=== PATIENT | male | born 1995 | race Caucasian/White ===

== ENCOUNTER → 2018-04-30 | Outpatient (CLI) | payer OTHER ==
--- NOTE | 2018-04-30 14:57 | XR ---
Thoracic spine HISTORY: Upper and mid back pain, lifting injury 3 views of the thoracic spine submitted on 5 images. Thoracic vertebral bodies show preserved height, alignment, and bone mineralization. Disc spaces are maintained. There is a mild spinal curvature is suspected at the upper thoracic spine level. Disc spa neeru are maintained. IMPRESSION: Possible scoliotic curvature of the thoracic spine.
== END | disposition home or self-care (01) ==
LOC: RADXRMAIN 14:05
PROVIDERS: ATTEND Emergency Medicine
DX: S23.3XXA Sprain of ligaments of thoracic spine, initial encounter (principal)
CPT/HCPCS: 72072

== ENCOUNTER 2020-05-08 11:13 | Emergency (ER) | payer BC ==
[2020-05-08 11:24] VITALS: RESP 18
[2020-05-08] MEDS ORDERED: SODIUM CHLORIDE 0.9% 1,000 ML IV STA (11:29)
--- NOTE | 2020-05-08 12:02 | ED ---
General Adult HPI - General Chief complaint: Chest Pain Stated complaint: chest pain Time Seen by Provider: 05/08/20 11:26 Source: patient, RN notes reviewed, old records reviewed Mode of arrival: ambulatory Limitations: no limitations - History of Present Illness Initial comments: 24-year-old male presenting for evaluation of left upper chest pain. Pain is sharp in nature, worse with deep inspiration. It has been present for the past 24-48 hours. Patient states he was at work yesterday and it was quite hot and he was dehydrated, felt lightheaded. He was told that he needed to stay at work for an additional 8 hours and he left for medical reasons. He is presenting today with a need for a work note. He has been eating and drinking well for the past 16 hours. He has rested and feels better. He states only minimal chest pain at this time. No dyspnea. No fever. - Related Data Home Medications Medication Instructions Recorded Confirmed Dextroamphetamine/Amphetamine 15 - 30 mg PO TID 05/08/20 05/08/20 [Dextroamp-Amphetamin 30 mg Tab] Ibuprofen [Motrin] 800 mg PO Q8H 05/08/20 05/08/20 Allergies Allergy/AdvReac Type Severity Reaction Status Date / Time No Known Allergies Allergy Verified 05/08/20 11:55 Review of Systems ROS Statement: Those systems with pertinent positive or pertinent negative responses have been documented in the HPI. ROS Other: All systems not noted in ROS Statement are negative. Past Medical History Past Medical History: No Reported History History of Any Multi-Drug Resistant Organisms: None Reported Past Surgical History: No Surgical Hx Reported Past Psychological History: No Psychological Hx Reported Smoking Status: Current some day smoker Past Alcohol Use History: Occasional Past Drug Use History: None Reported General Exam Limitations: no limitations General appearance: alert, in no apparent distress Head exam: Present: atraumatic, normocephalic Eye exam: Present: normal appearance, PERRL ENT exam: Present: normal exam Neck exam: Present: normal inspection. Absent: tenderness, meningismus Respiratory exam: Present: normal lung sounds bilaterally. Absent: respiratory distress, wheezes Cardiovascular Exam: Present: regular rate, normal rhythm, normal heart sounds GI/Abdominal exam: Present: soft. Absent: distended, tenderness, guarding Extremities exam: Present: normal inspection, normal capillary refill. Absent: pedal edema Back exam: Present: normal inspection Neurological exam: Present: alert, oriented X3, CN II-XII intact. Absent: motor sensory deficit Psychiatric exam: Present: normal affect, normal mood Skin exam: Present: warm, dry, intact. Absent: cyanosis, diaphoretic Course Vital Signs 05/08/20 05/08/20 05/08/20 11:21 12:06 12:21 Temperature 98.3 F Pulse Rate 101 H 64 Pulse Rate [ 80 Hiv/Aids Care Nurse ] Respiratory 18 18 Rate Blood Pressure 125/87 124/80 O2 Sat by Pulse 98 98 Oximetry EKG Findings - EKG Comments: EKG Findings:: EKG: Normal sinus rhythm, rate is 70, MO interval 152, QRS duration 86, QTC 421, no ST segment elevation Medical Decision Making - Medical Decision Making 24-year-old male with chest pain, left side of his chest, has been present for several weeks, he reports pain in both with movement and deep inspiration. He reports some lightheadedness which occurred yesterday while he was working in a very hot environment. Patient has normal CBC, normal CMP. He has nonischemic EKG which is sinus rhythm. Chest x-rays negative for acute pulmonary disease. He has a negative d-dimer, negative troponin. He is feeling much better. Patient in need of a work note. - Lab Data Result diagrams: 05/08/20 12:17 05/08/20 12:17 Lab Results 05/08/20 05/08/20 Range/Units 12:17 12:17 WBC 6.5 (3.8-10.6) k/uL RBC 5.07 (4.30-5.90) m/uL Hgb 15.7 (13.0-17.5) gm/dL Hct 45.2 (39.0-53.0) % MCV 89.1 (80.0-100.0) fL MCH 30.9 (25.0-35.0) pg MCHC 34.7 (31.0-37.0) g/dL RDW 12.4 (11.5-15.5) % Plt Count 209 (150-450) k/uL Neutrophils % 54 % Lymphocytes % 32 % Monocytes % 7 % Eosinophils % 4 % Basophils % 1 % Neutrophils # 3.5 (1.3-7.7) k/uL Lymphocytes # 2.1 (1.0-4.8) k/uL Monocytes # 0.4 (0-1.0) k/uL Eosinophils # 0.3 (0-0.7) k/uL Basophils # 0.0 (0-0.2) k/uL Sodium 140 (137-145) mmol/L Potassium 4.1 (3.5-5.1) mmol/L Chloride 102 (98-107) mmol/L Carbon Dioxide 28 (22-30) mmol/L Anion Gap 10 mmol/L BUN 18 (9-20) mg/dL Creatinine 0.88 (0.66-1.25) mg/dL Est GFR (CKD-EPI)AfAm >90 (>60 ml/min/1.73 sqM) Est GFR (CKD-EPI)NonAf >90 (>60 ml/min/1.73 sqM) Glucose 92 (74-99) mg/dL Calcium 9.6 (8.4-10.2) mg/dL Magnesium 1.8 (1.6-2.3) mg/dL Total Bilirubin 1.5 H (0.2-1.3) mg/dL AST 29 (17-59) U/L ALT 22 (4-49) U/L Alkaline Phosphatase 45 (38-126) U/L Total Protein 7.4 (6.3-8.2) g/dL Albumin 4.6 (3.5-5.0) g/dL Disposition Clinical Impression: Chest pain Disposition: HOME SELF-CARE Condition: Good Instructions (If sedation given, give patient instructions): Chest Pain (ED) Is patient prescribed a controlled substance at d/c from ED?: No Referrals: Tremaine Bellamy MD [Primary Care Provider] - 1-2 days Time of Disposition: 12:58
[2020-05-08 12:21] VITALS: PULSE 64
[2020-05-08 12:29] LABS: Basophils % (A) 1 %; Eosinophils # (A) 0.3 k/uL (0-0.7); Eosinophils % (A) 4 %; HCT 45.2 % (39.0-53.0); HGB 15.7 gm/dL (13.0-17.5); Lymphocytes # (A) 2.1 k/uL (1.0-4.8); Lymphocytes % (A) 32 %; MCH 30.9 pg (25.0-35.0); MCHC 34.7 g/dL (31.0-37.0); MCV 89.1 fL (80.0-100.0); Monocytes # (A) 0.4 k/uL (0-1.0); Monocytes % (A) 7 %; Neutrophils # (A) 3.5 k/uL (1.3-7.7); Neutrophils % (A) 54 %; Platelet Count 209 k/uL (150-450); RBC 5.07 m/uL (4.30-5.90); RDW 12.4 % (11.5-15.5); WBC 6.5 k/uL (3.8-10.6)
--- NOTE | 2020-05-08 12:32 | XR ---
EXAMINATION TYPE: XR chest 2V DATE OF EXAM: 05/08/2020 COMPARISON: NONE HISTORY: Intermittent chest pain into left arm for a few weeks. TECHNIQUE: Frontal and lateral views of the chest are obtained. FINDINGS: Overlying EKG leads are present. There is no focal air space opacity, pleural effusion, or pneumothorax seen. The cardiac silhouette size is within normal limits. The osseous structures ar e intact. IMPRESSION: No acute cardiopulmonary process.
[2020-05-08 12:41] LABS: ALT 22 U/L (4-49); AST 29 U/L (17-59); African American GFR (CKD) >90 (>60 ml/min/1.73 sqM); Albumin 4.6 g/dL (3.5-5.0); Alkaline Phosphatase 45 U/L (38-126); Anion Gap 10 mmol/L; Blood Urea Nitrogen 18 mg/dL (9-20); Calcium 9.6 mg/dL (8.4-10.2); Carbon Dioxide 28 mmol/L (22-30); Chloride 102 mmol/L (98-107); Glucose 92 mg/dL (74-99); Magnesium 1.8 mg/dL (1.6-2.3); Non-African American GFR(CKD) >90 (>60 ml/min/1.73 sqM); Potassium 4.1 mmol/L (3.5-5.1); Sodium 140 mmol/L (137-145); Total Bilirubin 1.5 mg/dL (0.2-1.3); Total Protein 7.4 g/dL (6.3-8.2)
[2020-05-08 12:55] LABS: D-Dimer <0.17 mg/L FEU (<0.60); INR 1.1 (<1.2); Partial Thromboplastin Time 24.2 sec (22.0-30.0); Prothrombin Time 11.2 sec (9.0-12.0)
[2020-05-08 13:07] VITALS: BP 120/69; TEMP 97.9
== END 2020-05-08 13:25 | disposition home or self-care (01) ==
LOC: EC 11:13
DX: R07.1 Chest pain on breathing (principal); R42 Dizziness and giddiness; F17.200 Nicotine dependence, unspecified, uncomplicated
CPT/HCPCS: 36415; 71046; 80053; 83735; 84484; 85025; 85379; 85610; 85730; 93005; 96360; 99284

== ENCOUNTER 2021-11-28 17:25 | Emergency (ER) | payer BC, OTHER ==
[2021-11-28 17:41] VITALS: BP 152/87; PULSE 74; RESP 18; TEMP 98
[2021-11-28] MEDS ORDERED: PROPARACAINE 0.5% OPHTH DROPS 15 ML BTL LEFT EYE STA (18:11)
[2021-11-28] MEDS ORDERED: KETOROLAC 15 MG/ML 1 ML VIAL IM STA (18:12)
--- NOTE | 2021-11-28 18:29 | ED ---
Eye Problem HPI - General Chief complaint: Eye Problems Stated complaint: metal in eye Time Seen by Provider: 11/28/21 17:43 Source: patient, RN notes reviewed Mode of arrival: ambulatory Limitations: no limitations - History of Present Illness Initial comments: Patient is a 25 she'll male that presents to the emergency Department due to a metal foreign body in his left eye. Patient notes that about 3 days since it went into his eye. He notes that he tried rinsing it in several months own with no relief. Patient comes the ER today had removed. Patient denied any other issues or complaints. He was otherwise well-appearing. He denied any chest pain shortness of breath headache nausea vomiting diarrhea constipation fever fatigue chills. He denied any change in vision blurry vision. - Related Data Home Medications Medication Instructions Recorded Confirmed Dextroamphetamine/Amphetamine 15 - 30 mg PO TID 05/08/20 05/08/20 [Dextroamp-Amphetamin 30 mg Tab] Ibuprofen [Motrin] 800 mg PO Q8H 05/08/20 05/08/20 Allergies Allergy/AdvReac Type Severity Reaction Status Date / Time No Known Allergies Allergy Verified 11/28/21 17:38 Review of Systems ROS Statement: Those systems with pertinent positive or pertinent negative responses have been documented in the HPI. ROS Other: All systems not noted in ROS Statement are negative. Past Medical History Past Medical History: No Reported History History of Any Multi-Drug Resistant Organisms: None Reported Past Surgical History: No Surgical Hx Reported Past Psychological History: No Psychological Hx Reported Past Alcohol Use History: Occasional Past Drug Use History: Marijuana General Exam Limitations: no limitations General appearance: alert, in no apparent distress Head exam: Present: atraumatic, normocephalic, normal inspection Eye exam: Present: normal appearance, PERRL, EOMI. Absent: scleral icterus, conjunctival injection, periorbital swelling Expanded Eyelids: Normal Inspection: Bilateral Pupils: Regular, Round: Bilateral Sclera/Conjunctival: Foreign Body: Left (Small metallic foreign body) ENT exam: Present: normal exam, mucous membranes moist Neck exam: Present: normal inspection Respiratory exam: Present: normal lung sounds bilaterally. Absent: respiratory distress, wheezes, rales, rhonchi, stridor Cardiovascular Exam: Present: regular rate, normal rhythm, normal heart sounds. Absent: systolic murmur, diastolic murmur, rubs, gallop, clicks Extremities exam: Present: normal inspection, full ROM, normal capillary refill. Absent: tenderness, pedal edema, joint swelling, calf tenderness Neurological exam: Present: alert, oriented X3 Psychiatric exam: Present: normal affect, normal mood Skin exam: Present: warm, dry, intact, normal color. Absent: rash Course Vital Signs 11/28/21 17:38 Temperature 98 F Pulse Rate 74 Respiratory 18 Rate Blood Pressure 152/87 O2 Sat by Pulse 100 Oximetry Medical Decision Making - Medical Decision Making 25 she'll male with a left eye foreign body presenting. On Physical exam there is a small metallic foreign body in the left eye. Proparacaine drops and Toradol ordered. Due to timeframe of metallic foreign body and kera brush missing patient will be referred to ophthalmology for removal. Take discussed with Dr. Johnson. Disposition Clinical Impression: Foreign body of cornea Disposition: HOME SELF-CARE Condition: Stable Instructions (If sedation given, give patient instructions): Eye Foreign Body (ED) Additional Instructions: Please return to the Emergency Department if symptoms worsen or any other concerns. Follow-up with primary care in 1-2 days. Follow-up with ophthalmology tomorrow as soon as possible. Take Motrin as needed for discomfort. Is patient prescribed a controlled substance at d/c from ED?: No Referrals: Tremaine Bellamy MD [Primary Care Provider] - 1-2 days Max Randle MD [STAFF PHYSICIAN] - 1-2 days Time of Disposition: 18:29
== END 2021-11-28 18:33 | disposition home or self-care (01) ==
LOC: EC 17:25
DX: T15.01XA Foreign body in cornea, right eye, initial encounter (principal); F12.90 Cannabis use, unspecified, uncomplicated; Z72.89 Other problems related to lifestyle
CPT/HCPCS: 99283; 96372; J1885

== ENCOUNTER 2023-01-31 18:28 | Emergency (ER) | payer OTHER ==
[2023-01-31 21:16] VITALS: TEMP 98.8
[2023-01-31] MEDS ORDERED: SODIUM CHLORIDE 0.9% 1,000 ML IV STA (22:08)
[2023-01-31] MEDS ORDERED: KETOROLAC 15 MG/ML 1 ML VIAL IVP STA (22:09)
--- NOTE | 2023-01-31 22:14 | ED ---
General Adult HPI - General Chief complaint: Weakness Stated complaint: weakness Time Seen by Provider: 01/31/23 20:53 Source: patient, RN notes reviewed, old records reviewed Mode of arrival: ambulatory Limitations: no limitations - History of Present Illness Initial comments: 27-year-old well appearing male presents to the emergency room with complaints of sore throat, malaise and chills for the past 5 days. States he went to urgent care on Friday and again on Friday. He was put on amoxicillin but tested negative for strep and mono. He's been taking the amoxicillin for the past 2 days. He was also given steroids. States feeling increasingly weak and has not been eating well. Feels dehydrated. Denies any abdominal pain. No medical history. No medicines on a daily basis. -: days(s) (6) Location: mouth (sore throat) Severity scale (1-10): 8 Consistency: constant Improves with: none Associated Symptoms: malaise, nausea/vomiting Treatments Prior to Arrival: other (amoxicillin) - Related Data Home Medications Medication Instructions Recorded Confirmed Dextroamphetamine/Amphetamine 15 - 30 mg PO TID 05/08/20 05/08/20 [Dextroamp-Amphetamin 30 mg Tab] Ibuprofen [Motrin] 800 mg PO Q8H 05/08/20 05/08/20 Allergies Allergy/AdvReac Type Severity Reaction Status Date / Time No Known Allergies Allergy Verified 01/31/23 19:36 Review of Systems ROS Statement: Those systems with pertinent positive or pertinent negative responses have been documented in the HPI. ROS Other: All systems not noted in ROS Statement are negative. Past Medical History Past Medical History: No Reported History History of Any Multi-Drug Resistant Organisms: None Reported Past Surgical History: No Surgical Hx Reported Past Psychological History: No Psychological Hx Reported Smoking Status: Never smoker Past Alcohol Use History: Occasional Past Drug Use History: Marijuana General Exam Limitations: no limitations General appearance: alert, in no apparent distress Head exam: Present: atraumatic, normocephalic Eye exam: Present: normal appearance. Absent: scleral icterus, conjunctival injection, periorbital swelling, periorbital tenderness ENT exam: Present: mucous membranes moist Expanded Throat exam: tonsillar erythema, tonsillomegaly, tonsillar exudate. negative: R peritonsillar mass, L peritonsillar mass Neck exam: Present: full ROM. Absent: tenderness, meningismus, lymphadenopathy, thyromegaly Respiratory exam: Present: normal lung sounds bilaterally. Absent: respiratory distress, accessory muscle use Cardiovascular Exam: Present: regular rate GI/Abdominal exam: Present: soft. Absent: distended, tenderness, guarding, rebound, rigid Extremities exam: Present: normal capillary refill. Absent: pedal edema Neurological exam: Present: alert, oriented X3, CN II-XII intact Psychiatric exam: Present: normal affect, normal mood Skin exam: Present: warm, dry, normal color. Absent: cyanosis, diaphoretic, petechiae, pallor Course Vital Signs 01/31/23 01/31/23 02/01/23 19:31 21:14 00:09 Temperature 98.7 F 98.8 F Pulse Rate 96 70 76 Respiratory 20 18 16 Rate Blood Pressure 123/77 131/91 115/78 O2 Sat by Pulse 97 98 99 Oximetry Medical Decision Making - Medical Decision Making Patient was given a liter and a half of IV fluids and Toradol for his body aches. He is afebrile and hemodynamically stable. Due to 6 days of illness, labs were drawn showing a mild leukocytosis likely related to the steroid was prescribed. On physical exam patient has tonsillar exudate, no evidence of peritonsillar abscess. Culture was sent and he is positive for group A strep. Currently on antibiotics. States feeling much better after IV fluids. Is able to tolerate oral fluids. Directed to continue this medication and follow-up with his primary care doctor next week. return with any new or concerning symptoms. He is agreeable to this plan of care. Case discussed with Dr. Camarena Was pt. sent in by a medical professional or institution (, [facility], [employer]ING[employer], urgent care, hospital, or intermediate...) When possible be specific @ -[No] Did you speak to anyone other than the patient for history (EMS, parent, family, police, friend...)? What history was obtained from this source @ -[No] Did you review nursing and triage notes (agree or disagree)? Why? @ -[I reviewed and agree with nursing and triage notes] Were old charts reviewed (outside hosp., previous admission, EMS record, old EKG, old radiological studies, urgent care reports/EKG's, intermediate records)? Report findings @ -[No old charts were reviewed] Differential Diagnosis (chest pain, altered mental status, abdominal pain women, abdominal pain men, vaginal bleeding, weakness, fever, dyspnea, syncope, h eadache, dizziness, GI bleed, back pain, seizure, CVA, palpatations, mental health, musculoskeletal)? @ strep pharyngitis, viral URI, infectious mononucleosis, influenza virus, ep iglottitis, retropharyngeal abscess, this is not all-inclusive list EKG interpreted by me (3pts min.). @ n/a X-rays interpreted by me (1pt min.). @ -[None done] CT interpreted by me (1pt min.). @ -[None done] U/S interpreted by me (1pt. min.). @ -[None done] What testing was considered but not performed or refused? (CT, X-rays, U/S, labs)? Why? @ -[None] What meds were considered but not given or refused? Why? @ currently on antibiotics and steroids Did you discuss the management of the patient with other professionals (professionals i.e. , PA, STRINGED INSTRUMENT T[employer]ER, lab, RT, psych nurse, social and human services assistant, civil lawyer, teacher, energy control officer, test case developer)? Give summary @ -[No] Was smoking cessation discussed for >3mins.? @ -[No] Was critical care preformed (if so, how long)? @ -[No] Were there social determinants of health that impacted care today? How? (Homelessness, low income, unemployed, alcoholism, drug addiction, transportation, low edu. Level, literacy, decrease access to med. care, senior living, rehab)? @ -[No] Was there de-escalation of care discussed even if they declined (Discuss DNR or withdrawal of care, Hospice)? DNR status @ -[No] What co-morbidities impacted this encounter? (DM, HTN, Smoking, COPD, CAD, Cancer, CVA, ARF, Chemo, Hep., AIDS, mental health diagnosis, sleep apnea, morbid obesity)? @ -[None] Was patient admitted / discharged? Hospital course, mention meds given and route, prescriptions, significant lab abnormalities, going to OR and other pertinent info. @ -discharged Undiagnosed new problem with uncertain prognosis? @ -[No] Drug Therapy requiring intensive monitoring for toxicity (Heparin, Nitro, Insulin, Cardizem)? @ -[No] Were any procedures done? @ -[No] Diagnosis/symptom? @ strep pharyngitis Acute, or Chronic, or Acute on Chronic? @ acute Uncomplicated (without systemic symptoms) or Complicated (systemic symptoms)? @ uncomplicated Side effects of treatment? @ -[No] Exacerbation, Progression, or Severe Exacerbation? @ -[No] Poses a threat to life or bodily function? How? (Chest pain, [place], [place], pneumonia, PE, COPD, DKA, ARF, appy, cholecystitis, CVA, Diverticulitis, Homicidal, Suicidal, threat to staff... and all critical care pts) @ -[No] - Lab Data Result diagrams: 01/31/23 22:33 01/31/23 22:33 Lab Results 01/31/23 01/31/23 01/31/23 Range/Units 19:40 22:32 22:33 WBC 12.3 H (3.8-10.6) k/uL RBC 5.56 (4.30-5.90) m/uL Hgb 16.8 (13.0-17.5) gm/dL Hct 48.6 (39.0-53.0) % MCV 87.4 (80.0-100.0) fL MCH 30.2 (25.0-35.0) pg MCHC 34.6 (31.0-37.0) g/dL RDW 11.9 (11.5-15.5) % Plt Count 283 (150-450) k/uL MPV 7.9 Neutrophils % 69 % Lymphocytes % 21 % Monocytes % 7 % Eosinophils % 0 % Basophils % 0 % Neutrophils # 8.5 H (1.3-7.7) k/uL Lymphocytes # 2.6 (1.0-4.8) k/uL Monocytes # 0.9 (0-1.0) k/uL Eosinophils # 0.0 (0-0.7) k/uL Basophils # 0.1 (0-0.2) k/uL Sodium (137-145) mmol/L Potassium (3.5-5.1) mmol/L Chloride (98-107) mmol/L Carbon Dioxide (22-30) mmol/L Anion Gap mmol/L BUN (9-20) mg/dL Creatinine (0.66-1.25) mg/dL Est GFR (CKD-EPI)AfAm (>60 ml/min/1.73 sqM) Est GFR (CKD-EPI)NonAf (>60 ml/min/1.73 sqM) Glucose (74-99) mg/dL Calcium (8.4-10.2) mg/dL Magnesium (1.6-2.3) mg/dL Total Bilirubin (0.2-1.3) mg/dL AST (17-59) U/L ALT (4-49) U/L Alkaline Phosphatase (38-126) U/L Total Protein (6.3-8.2) g/dL Albumin (3.5-5.0) g/dL Heterophile Antibody Negative (Negative) Influenza Type A (PCR) Not Detected (Not Detectd) Influenza Type B (PCR) Not Detected (Not Detectd) RSV (PCR) Not Detected (Not Detectd) SARS-CoV-2 (PCR) Not Detected (Not Detectd) Group A Strep (PCR) (Not Detectd) 01/31/23 01/31/23 Range/Units 22:33 23:11 WBC (3.8-10.6) k/uL RBC (4.30-5.90) m/uL Hgb (13.0-17.5) gm/dL Hct (39.0-53.0) % MCV (80.0-100.0) fL MCH (25.0-35.0) pg MCHC (31.0-37.0) g/dL RDW (11.5-15.5) % Plt Count (150-450) k/uL MPV Neutrophils % % Lymphocytes % % Monocytes % % Eosinophils % % Basophils % % Neutrophils # (1.3-7.7) k/uL Lymphocytes # (1.0-4.8) k/uL Monocytes # (0-1.0) k/uL Eosinophils # (0-0.7) k/uL Basophils # (0-0.2) k/uL Sodium 142 (137-145) mmol/L Potassium 4.7 (3.5-5.1) mmol/L Chloride 98 (98-107) mmol/L Carbon Dioxide 33 H (22-30) mmol/L Anion Gap 11 mmol/L BUN 24 H (9-20) mg/dL Creatinine 0.76 (0.66-1.25) mg/dL Est GFR (CKD-EPI)AfAm >90 (>60 ml/min/1.73 sqM) Est GFR (CKD-EPI)NonAf >90 (>60 ml/min/1.73 sqM) Glucose 103 H (74-99) mg/dL Calcium 10.0 (8.4-10.2) mg/dL Magnesium 2.4 H (1.6-2.3) mg/dL Total Bilirubin 0.9 (0.2-1.3) mg/dL AST 34 (17-59) U/L ALT 59 H (4-49) U/L Alkaline Phosphatase 82 (38-126) U/L Total Protein 8.4 H (6.3-8.2) g/dL Albumin 4.8 (3.5-5.0) g/dL Heterophile Antibody (Negative) Influenza Type A (PCR) (Not Detectd) Influenza Type B (PCR) (Not Detectd) RSV (PCR) (Not Detectd) SARS-CoV-2 (PCR) (Not Detectd) Group A Strep (PCR) DETECTED A (Not Detectd) Disposition Clinical Impression: Strep pharyngitis Disposition: HOME SELF-CARE Condition: Good Instructions (If sedation given, give patient instructions): Strep Throat (ED) Additional Instructions: Increase your fluid intake. Continue taking the antibiotics and steroids as previously prescribed. Follow-up with the primary care doctor next week. Return to the emergency room with any new or concerning symptoms. Is patient prescribed a controlled substance at d/c from ED?: No Referrals: Tremaine Bellamy MD [Primary Care Provider] - 1-2 days Time of Disposition: 00:35
[2023-01-31 23:14] LABS: Basophils # (A) 0.1 k/uL (0-0.2); Basophils % (A) 0 %; Eosinophils % (A) 0 %; HCT 48.6 % (39.0-53.0); HGB 16.8 gm/dL (13.0-17.5); Lymphocytes # (A) 2.6 k/uL (1.0-4.8); Lymphocytes % (A) 21 %; MCH 30.2 pg (25.0-35.0); MCHC 34.6 g/dL (31.0-37.0); MCV 87.4 fL (80.0-100.0); Mean Platelet Volume 7.9; Monocytes # (A) 0.9 k/uL (0-1.0); Monocytes % (A) 7 %; Neutrophils # (A) 8.5 k/uL (1.3-7.7); Neutrophils % (A) 69 %; Platelet Count 283 k/uL (150-450); RBC 5.56 m/uL (4.30-5.90); RDW 11.9 % (11.5-15.5); WBC 12.3 k/uL (3.8-10.6)
[2023-01-31 23:36] LABS: ALT 59 U/L (4-49); AST 34 U/L (17-59); African American GFR (CKD) >90 (>60 ml/min/1.73 sqM); Albumin 4.8 g/dL (3.5-5.0); Alkaline Phosphatase 82 U/L (38-126); Anion Gap 11 mmol/L; Blood Urea Nitrogen 24 mg/dL (9-20); Carbon Dioxide 33 mmol/L (22-30); Chloride 98 mmol/L (98-107); Glucose 103 mg/dL (74-99); Magnesium 2.4 mg/dL (1.6-2.3); Non-African American GFR(CKD) >90 (>60 ml/min/1.73 sqM); Potassium 4.7 mmol/L (3.5-5.1); Sodium 142 mmol/L (137-145); Total Bilirubin 0.9 mg/dL (0.2-1.3); Total Protein 8.4 g/dL (6.3-8.2)
[2023-01-31] MEDS ORDERED: SODIUM CHLORIDE 0.9% 500 ML 500 ML IV ONE (23:53)
[2023-02-01 00:10] VITALS: BP 115/78; PULSE 76; RESP 16
== END 2023-02-01 00:53 | disposition home or self-care (01) ==
LOC: EC 18:28
DX: J02.0 Streptococcal pharyngitis (principal); B95.0 Streptococcus, group A, as the cause of diseases classified elsewhere; F12.90 Cannabis use, unspecified, uncomplicated; Z20.822 Contact with and (suspected) exposure to COVID-19
CPT/HCPCS: 36415; 87651; 80053; 83735; 85025; 86308; 87636; 99285; 96374; 96361; J1885

== ENCOUNTER 2023-07-27 18:10 | Emergency (ER) | payer OTHER ==
[2023-07-27 18:25] VITALS: TEMP 98.9
--- NOTE | 2023-07-27 18:27 | ED ---
General Adult HPI - General Source: patient, RN notes reviewed <Chandni Felton - Last Filed: 07/27/23 18:52> <Janell Phillips - Last Filed: 07/28/23 10:13> - General Chief complaint: Back Pain/Injury Stated complaint: back pain Time Seen by Provider: 07/27/23 18:26 - History of Present Illness Initial comments: 27 year old male presents to the emergency department for chief complaint of low back pain. He states that he was at a horse show when he twisted and "felt a pop." Denies loss of bowel or bladder function. Denies saddle anesthesia. (Chandni Felton) 27-year-old previously healthy male who presents emergency room reporting low back pain. States that he was at a horse show sitting in a folding chair when he turned to his side. States that he felt a pop instant numbness in his bilateral lower extremities. He was unable to get up and ambulate due to pain. States that he sat there for several hours. When he was required to get up from the chair he states he crawled to the ground and couldn't move. He reports that over time the numbness in his legs has improved and now he was only left with pain in his lumbar back. No paralysis in his lower extremities. Has intact sensation. Denies fevers. No history of intravenous drug use. No saddle anesthesia. No loss of bowel or bladder function. Has urinated twice since he has been in the waiting room. He did not take anything for the pain before coming in. No history of chronic back pain. No other alleviating, precipitating or modifying factors (Janell Phillips) - Related Data Home Medications Medication Instructions Recorded Confirmed Dextroamphetamine/Amphetamine 15 - 30 mg PO TID 05/08/20 05/08/20 [Dextroamp-Amphetamin 30 mg Tab] Ibuprofen [Motrin] 800 mg PO Q8H 05/08/20 05/08/20 Previous Rx's Medication Instructions Recorded HYDROcodone/APAP 7.5-325MG [Firebaugh 1 tab PO Q8HR PRN 3 Days #18 tab 07/28/23 7.5-325] predniSONE [Deltasone] 20 mg PO BID #10 tab 07/28/23 Allergies Allergy/AdvReac Type Severity Reaction Status Date / Time No Known Allergies Allergy Verified 07/27/23 18:25 Review of Systems ROS Other: All systems not noted in ROS Statement are negative. <Chandni Felton - Last Filed: 07/27/23 18:52> ROS Other: All systems not noted in ROS Statement are negative. <Deidre Phillipsah Sabino - Last Filed: 07/28/23 10:13> ROS Statement: Those systems with pertinent positive or pertinent negative responses have been documented in the HPI. Past Medical History Past Medical History: No Reported History History of Any Multi-Drug Resistant Organisms: None Reported Past Surgical History: No Surgical Hx Reported Past Psychological History: No Psychological Hx Reported Smoking Status: Never smoker Past Alcohol Use History: Occasional Past Drug Use History: Marijuana <Chandni Felton - Last Filed: 07/27/23 18:52> General Exam <Chandni Felton - Last Filed: 07/27/23 18:52> General appearance: alert, in no apparent distress Head exam: Present: atraumatic, normocephalic, normal inspection Eye exam: Present: normal appearance, PERRL, EOMI. Absent: scleral icterus, conjunctival injection, periorbital swelling ENT exam: Present: normal exam, mucous membranes moist Neck exam: Present: normal inspection. Absent: tenderness, meningismus, lymphadenopathy Respiratory exam: Present: normal lung sounds bilaterally. Absent: respiratory distress, wheezes, rales, rhonchi, stridor Cardiovascular Exam: Present: regular rate, normal rhythm, normal heart sounds. Absent: systolic murmur, diastolic murmur, rubs, gallop, clicks GI/Abdominal exam: Present: soft, normal bowel sounds. Absent: distended, tenderness, guarding, rebound, rigid Rectal exam: Present: normal rectal tone Extremities exam: Present: normal inspection, full ROM, normal capillary refill. Absent: tenderness, pedal edema, joint swelling, calf tenderness Back exam: Present: tenderness (spinal L2-L5. Negative straight leg raise intact sensation of the medial, dorsal, lateral aspect of the bilateral lower extremity. 2+ DP and PT pulses. Compartments are soft) Neurological exam: Present: alert, oriented X3, CN II-XII intact Psychiatric exam: Present: normal affect, normal mood Skin exam: Present: warm, dry, intact, normal color. Absent: rash <Janell Phillips - Last Filed: 07/28/23 10:13> - General Exam Comments Initial Comments: Visual Physical Exam Vital signs reviewed General: Well-appearing, nontoxic, no acute distress. Head: Normocephalic, atraumatic Eyes: PERRLA, EOMI ENT: Airway patent Chest: Nonlabored breathing Skin: No visual rash, normal skin tone Neuro: Alert and oriented 3 Musculoskeletal: No gross abnormalities (Chandni Felton) Course Vital Signs 07/27/23 07/27/23 07/27/23 18:23 22:05 23:59 Temperature 98.9 F Pulse Rate 68 76 62 Respiratory 16 18 16 Rate Blood Pressure 129/82 123/73 131/70 O2 Sat by Pulse 99 99 98 Oximetry 07/28/23 01:11 Temperature Pulse Rate 58 L Respiratory 18 Rate Blood Pressure 115/57 O2 Sat by Pulse 98 Oximetry Medical Decision Making <Chandni Felton - Last Filed: 07/27/23 18:52> <Janell Phillips - Last Filed: 07/28/23 10:13> - Medical Decision Making I preformed the quick note portion of this chart. Electronically signed by Chandni Felton PA-C (Chandni Felton) Was pt. sent in by a medical professional or institution ([facility], TRAFFIC CONTROL SIGNALER, urgent care, hospital, or [facility]...) When possible be specific @ -No Did you speak to anyone other than the patient for history (EMS, parent, family, police, friend...)? What history was obtained from this source @ -No Did you review nursing and triage notes (agree or disagree)? Why? @ -I reviewed and agree with nursing and triage notes Were old charts reviewed (outside hosp., previous admission, EMS record, old EKG, old radiological studies, urgent care reports/EKG's, [facility] records)? Report findings @ -No old charts were reviewed Differential Diagnosis (chest pain, altered mental status, abdominal pain women, abdominal pain men, vaginal bleeding, weakness, fever, dyspnea, syncope, headache, dizziness, GI bleed, back pain, seizure, CVA, palpatations, mental health, musculoskeletal)? @ -Differential Back Pain: Strain, zoster, cauda equina syndrome, epidural abscess, vertebral osteomyelitis, discitis, fracture, subluxation, disc herniation, DJD, spinal stenosis, dissection, AAA, pancreatitis, peptic ulcer disease, pyelonephritis, kidney stone, this is not meant to be an all-inclusive list. EKG interpreted by me (3pts min.). @ -Not completed X-rays interpreted by me (1pt min.). @ -Yesterday and demonstrates no acute injury CT interpreted by me (1pt min.). @ -None done U/S interpreted by me (1pt. min.). @ -None done What testing was considered but not performed or refused? (CT, X-rays, U/S, labs)? Why? @ -None What meds were considered but not given or refused? Why? @ -None Did you discuss the management of the patient with other professionals (professionals i.e. , PA, TRAFFIC CONTROL SIGNALER, lab, RT, psych nurse, social media executive, field health officer, teacher, compliance officer, rn field case manager)? Give summary @ -No Was smoking cessation discussed for >3mins.? @ -No Was critical care preformed (if so, how long)? @ -No Were there social determinants of health that impacted care today? How? (Homelessness, low income, unemployed, alcoholism, drug addiction, transportation, low edu. Level, literacy, decrease access to med. care, correction, rehab)? @ -No Was there de-escalation of care discussed even if they declined (Discuss DNR or withdrawal of care, Hospice)? DNR status @ -No What co-morbidities impacted this encounter? (DM, HTN, Smoking, COPD, CAD, Cancer, CVA, ARF, Chemo, Hep., AIDS, mental health diagnosis, sleep apnea, morbi d obesity)? @ -None Was patient admitted / discharged? Hospital course, mention meds given and route, prescriptions, significant lab abnormalities, going to OR and other pertinent info. @ -Upon arrival patient was placed into room 24. History and physical exam is performed. Patient does have intact sensation and motor function. He does have significant pain. He is given Valium 5 mg by mouth and 15 mg of IM Toradol. He is reevaluated and continues to have pain and therefore he is given 1 mg of Dilaudid. X-rays are read by myself as negative for any acute process. He does have improvement in his pain at this time. I did discuss diagnosis, differential and treatment options. Patient has no red flag symptoms. He does feel comfortable going home at this time. He will be prescribed prednisone and Firebaugh. He is to not operate heavy machinery while taking the Firebaugh. He'll follow up with his primary care doctor in 2-4 days. May need repeat testing to include MRI. Patient was agreeable to this plan and he was discharged home ambulatory in stable condition Undiagnosed new problem with uncertain prognosis? @ -Yes Drug Therapy requiring intensive monitoring for toxicity (Heparin, Nitro, Insulin, Cardizem)? @ -No Were any procedures done? @ -No Diagnosis/symptom? @ -Acute lumbar back pain, suspected herniated disc Acute, or Chronic, or Acute on Chronic? @ -Acute Uncomplicated (without systemic symptoms) or Complicated (systemic symptoms)? @ -Complicated Side effects of treatment? @ -No Exacerbation, Progression, or Severe Exacerbation? @ -No Poses a threat to life or bodily function? How? (Chest pain, [place], [place], pneumonia, PE, COPD, DKA, ARF, appy, cholecystitis, CVA, Diverticulitis, Homicidal, Suicidal, threat to staff... and all critical care pts) @ -No (Janell Phillips) Disposition <Chandni Felton - Last Filed: 07/27/23 18:52> Is patient prescribed a controlled substance at d/c from ED?: Yes When asked, does pt state using other controlled substances?: No If prescribed controlled substance>3 days was MAPS reviewed?: Prescribed <3 Days Time of Disposition: 01:02 <Janell Phillips - Last Filed: 07/28/23 10:13> Clinical Impression: Lumbar back pain, Injury caused by twisting, Lumbar radiculopathy Disposition: HOME SELF-CARE Condition: Stable Instructions (If sedation given, give patient instructions): Acute Low Back Pain (ED) Additional Instructions: I suspect that you have a herniated disc. Rest and place warm compresses to your back. No heavy lifting or bending. Take the pain medications and steroids as directed. Do not operate heavy machinery while taking the Firebaugh. When you finish the prednisone, you may start taking Motrin 600 mg every 6 hours alternating with the Firebaugh. Follow up with your primary care doctor as I do feel that you need an MRI Prescriptions: predniSONE [Deltasone] 20 mg PO BID #10 tab HYDROcodone/APAP 7.5-325MG [Firebaugh 7.5-325] 1 tab PO Q8HR PRN 3 Days #18 tab PRN Reason: Pain Referrals: Tremaine Bellamy MD [Primary Care Provider] - 1-2 days
[2023-07-27] MEDS ORDERED: diazePAM 5 MG TAB PO STA (21:54)
[2023-07-27] MEDS ORDERED: KETOROLAC 15 MG/ML 1 ML VIAL IM STA (21:54)
--- NOTE | 2023-07-27 23:17 | XR ---
EXAM: XR Lumbosacral Spine, 2 or 3 Views CLINICAL HISTORY: ITS.REASON XR Reason: trauma, pain TECHNIQUE: Frontal and lateral views of the lumbar spine and sacrum. COMPARISON: No relevant prior studies available. FINDINGS: Vertebrae: Straightening of the lumbar lordosis. Minimal levocurvature. No acute fracture. Sacrum/coccyx: Unremarkable as visualized. No acute fracture. Disc spaces: No acute findings. No significant narrowing. Soft tissues: Unremarkable. IMPRESSION: No acute findings in the lumbar spine.
[2023-07-27] MEDS ORDERED: MORPHINE SULFATE 4 MG/ML SYRINGE IM STA (23:26)
[2023-07-28 01:25] VITALS: BP 115/57; PULSE 58; RESP 18
== END 2023-07-28 01:25 | disposition home or self-care (01) ==
LOC: EC 18:10
DX: M54.16 Radiculopathy, lumbar region (principal); F12.90 Cannabis use, unspecified, uncomplicated; X50.1XXA Overexertion from prolonged static or awkward postures, initial encounter
CPT/HCPCS: 72100; 99284; 96372 ×2; J2270; J1885

== ENCOUNTER → 2024-04-28 | Outpatient (CLI) | payer BC ==
--- NOTE | 2024-04-28 16:26 | US ---
EXAMINATION TYPE: US kidneys/renal and bladder DATE OF EXAM: 04/28/2024 COMPARISON: None CLINICAL INDICATION: Male, 28 years old with history of R31.9 HEMATURIA; Pt states microscopic hematu sanjiv EXAM MEASUREMENTS: Right Kidney: 11.7 x 5.0 x 5.5 cm Left Kidney: 12.5 x 6.4 x 5.8 cm Right Kidney: No evidence of hydro, lower pole gassed out Left Kidney: No evidence of hydro, lower pole gassed out Bladder: wnl Bilateral Jets seen: Yes There is no evidence for hydronephrosis at this point in time. No nephrolithiasis is seen. No art s are identified. Cortical medullary differentiation is maintained bilaterally. The urinary bladder is anechoic without filling defect identified. Bilateral ureteral jets are seen. Hyperechoic homogen eous lesion within the right hepatic lobe measuring 1.8 x 1.7 x 1.5 cm. IMPRESSION: 1. No hydronephrosis or nephrolithiasis. 2. Incidental right hepatic lobe hyperechoic lesion. Statistically this represents a benign hemangiom a. This can be further evaluated with CT or MR abdomen liver mass protocol as clinically indicated.
== END | disposition home or self-care (01) ==
LOC: RADUSWWP 07:35
PROVIDERS: ATTEND Family Medicine
DX: K76.9 Liver disease, unspecified (principal); D18.03 Hemangioma of intra-abdominal structures; R31.9 Hematuria, unspecified
CPT/HCPCS: 76770